=== PATIENT | male | born 1985 | race African-American/Black ===

== ENCOUNTER 2017-07-18 04:32 | Emergency (ER) | payer OTHER ==
--- NOTE | 2017-07-18 04:48 | ED GENERAL ADULT ---
History of Present Illness General Chief Complaint: Ear Complaints Stated Complaint: RINGING IN HIS EAR Source: patient Exam Limitations: no limitations Vital Signs & Intake/Output Vital Signs & Intake/Output Vital Signs Date Time Temp Pulse Resp B/P B/P Pulse O2 O2 Flow FiO2 Mean Ox Delivery Rate 07/18 0502 97 Room Air 07/18 0433 80 18 127/60 98 Room Air Allergies Coded Allergies: No Known Allergies (07/18/17) Reconcile Medications Trazodone HCl 50 MG TABLET 1 TAB PO QPM INSOMNIA Triage Note: TRIAGE: PATIENT TO ER FROM HOME REQUESTING MRI. PATIENT STATES "I HAVE AN APPT W/ MY PCP IN JULY BUT I CAN'T WAIT THAT LONG. I CAN'T SLEEP AND I HAVE RINGING IN MY EARS." REQUESTING BP BE DONE. BP:127/ 60 Triage Nurses Notes Reviewed? yes Onset: Gradual Duration: week(s):, waxing and waning Timing: recent history Injury Environment: home Severity: moderate Modifying Factors: Improves With: rest. Associated Symptoms: intermittent tinnitus, insomnia HPI: 32 yo gentleman with 8 months of intermittent tinnitus, "it is sometimes the left ear... sometimes the right, with unknown triggers. He notes also difficulty sleeping. He has no headache, hearing loss, sinus congestion, ear discharge, fever. He is otherwise well. Past History Travel History Traveled to [place] past 21 day No Medical History Any Pertinent Medical History? see below for history Neurological: NONE EENT: tinnitus Cardiovascular: NONE Respiratory: NONE Gastrointestinal: NONE Hepatic: NONE Renal: NONE Musculoskeletal: NONE Psychiatric: NONE Endocrine: NONE Blood Disorders: NONE Cancer(s): NONE TELEPHONE SERVICE ADVISER/Reproductive: NONE Surgical History Surgical History: none Psychosocial History What is your primary language [place] Tobacco Use: Never used Family History Hx Contributory? No Review of Systems Review of Systems Constitutional: Reports: no symptoms. EENTM: Reports: no symptoms. Respiratory: Reports: no symptoms. Cardiovascular: Reports: no symptoms. GI: Reports: no symptoms. Genitourinary: Reports: no symptoms. Musculoskeletal: Reports: no symptoms. Skin: Reports: no symptoms. Neurological/Psychological: Reports: no symptoms. Hematologic/Endocrine: Reports: no symptoms. Immunologic/Allergic: Reports: no symptoms. All Other Systems: Reviewed and Negative Physical Exam Physical Exam General Appearance: well developed/nourished, no apparent distress, alert, awake Eyes: Bilateral: normal appearance, PERRL, EOMI. Ears, Nose, Throat: normal pharynx, normal ENT inspection Neck: normal inspection, supple, full range of motion Respiratory: normal breath sounds, chest non-tender, no respiratory distress, quiet respiration Cardiovascular: regular rate/rhythm Gastrointestinal: normal bowel sounds, soft, non-tender, no organomegaly Back: normal inspection Extremities: normal inspection, normal capillary refill, normal range of motion, no edema Neurologic/Psych: no motor/sensory deficits, awake, alert, oriented x 3 Skin: intact, normal color, warm/dry Core Measures ACS in differential dx? No CVA/TIA Diagnosis: No Sepsis Present: No Sepsis Focused Exam Completed? No Progress Differential Diagnoses I considered the following diagnoses in my evaluation of the patient: tinnitus insomnis.... i doubt acoustic neuroma... I encouraged elsie to follow up with his pmd for referral to neuro and to return here if symptoms worsen. Plan of Care: see below. Initial ED EKG: none Departure Departure Disposition: HOME OR SELF CARE Condition: Stable Clinical Impression Primary Impression: Tinnitus Secondary Impressions: Insomnia Referrals: Patient Has No Primary Care Dr (PCP/Family) Departure Forms: Customer Survey General Discharge Information Prescriptions: Current Visit Scripts Trazodone HCl 1 TAB PO QPM #14 TAB Ref 1 Comments 07/18/17, 6:21am... discussed at length. he has appt with pmd on 07/30 and will get referral to neuro and MRI then (he was unable to have neuro consult with referral from ED, he states). Will give trial of trazodone qhs prn for insomnia which may have some effect for tinnitus. close follow up advised. Critical Care Note Critical Care Note Critical Care Time: non-applicable
[2017-07-18] MEDS ORDERED: TRAZODONE HCL50 M1 PO (05:53)
[2017-07-18 06:23] VITALS: BP 126/68
[2017-07-21] MEDS ORDERED: IMODIUM A-D2 M1 PO (08:20)
[2017-07-21] MEDS ORDERED: LEVSIN-SL0.125 MG SL (08:20)
== END 2017-07-18 06:24 ==
LOC: ERH
DX: H93.19 Tinnitus, unspecified ear (principal); G47.00 Insomnia, unspecified